=== PATIENT | male | born 1950 | race Two or more races ===

== ENCOUNTER 2019-04-05 14:29 | Inpatient (IN) | payer OTHER ==
[~2019-04-05] VITALS: Ht 58.4 cm; Wt 5.0 kg
== END 2019-05-03 21:05 | disposition home or self-care (01) | DRG 348 ==
LOC: SURG 04-25 10:00 → O/R 05-02 05:38 → SURG 05-02 05:38
PROVIDERS: ADMIT Colon & Rectal Surgery
PROC: 0DBP7ZZ Excision of Rectum, Via Natural or Artificial Opening (ICD-10-PCS; principal; 2019-05-02 15:00)
DX: D12.8 Benign neoplasm of rectum (principal); K51.20 Ulcerative (chronic) proctitis without complications; E88.2 Lipomatosis, not elsewhere classified; H91.8X3 Other specified hearing loss, bilateral

== ENCOUNTER → 2020-05-05 06:05 | Outpatient (CLI) | payer OTHER | END | disposition home or self-care (01) | LOC: LAB 05-05 06:00 → ADM 12:45 → EDSTATUS 05-09 12:45 → AMB-ENDOS 05-09 12:45 | PROVIDERS: ATTEND Colon & Rectal Surgery | DX: C7A.026 Malignant carcinoid tumor of the rectum (principal); Z01.812 Encounter for preprocedural laboratory examination; Z20.828 Contact with and (suspected) exposure to other viral communicable diseases; Z85.048 Personal history of other malignant neoplasm of rectum, rectosigmoid junction, and anus; K92.1 Melena ==

== ENCOUNTER 2021-10-02 06:57 | Day surgery (SDC) | payer OTHER | END 2021-10-02 11:25 | disposition home or self-care (01) | LOC: AMB-ENDOS 06:57 | PROVIDERS: ATTEND Colon & Rectal Surgery | DX: D12.2 Benign neoplasm of ascending colon (principal); D12.8 Benign neoplasm of rectum; K64.1 Second degree hemorrhoids; Z20.822 Contact with and (suspected) exposure to COVID-19 ==